=== PATIENT | male | born 1995 ===

== ENCOUNTER 2016-11-13 12:03 | Emergency (ER) | payer SELFPAY ==
[~2016-11-13] VITALS: Ht 160 cm; Wt 77.3 kg
[2016-11-13] MEDS ORDERED: NORCO 325 MG-51 TAB PO (15:29)
[2016-11-13 17:29] VITALS: BP 119/83; PULSE 65; TEMP 98
== END 2016-11-14 14:26 | disposition home or self-care (01) ==
LOC: COL.ER 12:03
DX: S82.842A Displaced bimalleolar fracture of left lower leg, initial encounter for closed fracture (principal); S81.811A Laceration without foreign body, right lower leg, initial encounter; W22.8XXA Striking against or struck by other objects, initial encounter; Y92.411 Interstate highway as the place of occurrence of the external cause
CPT/HCPCS: J1885; J2405; J3010; J7030